=== PATIENT | female | born 1950 | race Caucasian/White ===

== ENCOUNTER 2017-07-28 07:39 | Day surgery (SDC) | payer MEDICARE, OTHER ==
[2017-07-28] MEDS: PHENYLEPHRINE 2.5% OPHTH SOL 2ML OD (07:00)
[2017-07-28] MEDS: CYCLOPENTOLATE 2% OPHTH SOLN 2ML BTL OD (07:00)
[2017-07-28] MEDS: LIDOCAINE 3.5 % 1ML OPHTH TOPICAL GEL OU (07:00)
[2017-07-28] MEDS: TROPICAMIDE 1% OPHTH SOLN 2ML OD (07:00)
[~2017-07-28 07:39] MED LIST: BSS with VANC/TOB/EPI for EYE CASES IR; OFLOXACIN 0.3 % (OCUFLOX) OPTH SOL 5ML OD
[2017-07-28] MEDS: PHENYLEPHRINE HCL 10 % OPHTH. SOL 5ML OD (08:33)
[2017-07-28] MEDS ORDERED: MIDAZOLAM INJ 2 MG/2 ML VIAL (J2250) As Ordered (08:38)
[2017-07-28] MEDS ORDERED: fentaNYL 100 MCG/2 ML INJECTION (J3010) As Ordered (08:38)
[2017-07-28] MEDS: POVIDONE-IODINE 5% OPHTH PREP SOL 30ML As Ordered (08:58)
[2017-07-28] MEDS: LIDOCAINE 1% SDV 5 ML VIAL As Ordered (09:09)
[2017-07-28] MEDS: TRIAMCINOLONE PRES FR 40 MG/ML 1ML(TRIESENCE)(OR EYE ONLY)(J3300 PER 1MG) As Ordered (09:09)
[2017-07-28] MEDS: MOXIFLOXACIN IN BSS 0.25MG/0.25ML INTRACAMERAL INJ (OR EYE ONLY)(J2280) As Ordered (09:09)
[2017-07-28] MEDS: HEALON DUET (HEALON 10MG/ML 0.55ML & HEALON ENDOCOAT 30MG/ML 0.85ML) As Ordered (09:09)
== END 2017-07-28 09:45 | disposition home or self-care (01) ==
LOC: M SDC 07:39
DX: H25.9 Unspecified age-related cataract (principal); K21.9 Gastro-esophageal reflux disease without esophagitis; J45.909 Unspecified asthma, uncomplicated; Z79.899 Other long term (current) drug therapy; F17.210 Nicotine dependence, cigarettes, uncomplicated
CPT/HCPCS: 66984

== ENCOUNTER → 2018-12-09 | Outpatient (CLI) | payer MEDICARE ==
[~2018-12-09] MED LIST changes: -BSS with VANC/TOB/EPI for EYE CASES IR; +ESOM0.1C PO; -OFLOXACIN 0.3 % (OCUFLOX) OPTH SOL 5ML OD
--- NOTE | 2018-12-10 09:59 | REP ---
RIGHT RIB SERIES, FOUR VIEWS: Four views of the right ribs are performed. No fracture or bone lesion is seen. IMPRESSION: No radiographic evidence of right rib fracture. Electronically Signed by Emeterio Hoff MD 12/12/2018 11:40 A
== END ==
LOC: M LRY 11:21
PROVIDERS: ATTEND Nurse Practitioner Adult Health
DX: S22.31XD Fracture of one rib, right side, subsequent encounter for fracture with routine healing (principal); W18.30XD Fall on same level, unspecified, subsequent encounter; Y92.009 Unspecified place in unspecified non-institutional (private) residence as the place of occurrence of the external cause

== ENCOUNTER → 2021-10-17 | Outpatient (CLI) | payer MEDICARE | LOC: M RAD 09:16 | PROVIDERS: ATTEND Nurse Practitioner Family | DX: Z87.891 Personal history of nicotine dependence (principal) ==

== ENCOUNTER 2023-11-18 13:36 | Inpatient (IN) | payer MEDICARE ==
[~2023-11-18] VITALS: Ht 167.6 cm; Wt 64.5 kg
[~2023-11-18 13:36] MED LIST changes: -ESOM0.1C PO; +ESOM20CA2 PO
[2023-11-18 15:49] VITALS: BP 133/63; TEMP 97.6; O2SAT 93
[2023-11-18] MEDS: POLYSPORIN TOPICAL OINTMENT 15GM TOP SCH (16:00)
[2023-11-18] MEDS: ACETAMINOPHEN 500 MG TAB PO SCH (16:00)
[2023-11-18] MEDS: ACETAMINOPHEN TAB 650MG DOSE (2X325MG) PO PRN (16:11)
[2023-11-18] MEDS ORDERED: ACETAMINOPHEN 325 MG TAB PO PRN (16:20)
[2023-11-18] MEDS: oxyCODONE 5MG TAB PO PRN (17:15)
[2023-11-18 20:00] VITALS: BP 131/63; TEMP 97.5; O2SAT 93
[2023-11-18] MEDS ORDERED: ACET1TAB55 PO (20:19)
[2023-11-18] MEDS ORDERED: OXYC-517 PO (20:19)
[2023-11-18] MEDS ORDERED: ESOM20CA25 PO (20:19)
[2023-11-18] MEDS ORDERED: LOVE1INJ SC (20:19)
[2023-11-18] MEDS ORDERED: CETI-24 PO (20:19)
[2023-11-18] MEDS ORDERED: SENN-186 PO (20:19)
[2023-11-18] MEDS ORDERED: BACI500O8 TOP (20:19)
[2023-11-18] MEDS ORDERED: METH-1164 PO (20:19)
[2023-11-18] MEDS ORDERED: METO1TAB87 PO (20:19)
[2023-11-18] MEDS ORDERED: HOME MED LIST COMPLETE! XX SCH (20:20)
[2023-11-18] MEDS: methocarbamoL 500 MG TAB PO SCH (21:02)
[2023-11-18] MEDS: SENNA 8.6 MG TAB (SENOKOT) PO SCH (21:04)
[2023-11-18] MEDS: ENOXAPARIN 40MG/0.4ML SYRINGE (J1650 PER 10MG) SC SCH (21:05)
[2023-11-19] MEDS: CETIRIZINE (ZyrTEC) 10 MG TAB PO SCH (09:00)
[2023-11-19] MEDS ORDERED: ENOXAPARIN 40MG/0.4ML SYRINGE (J1650 PER 10MG) As Ordered ONE (09:07)
[2023-11-19] MEDS ORDERED: ACETAMINOPHEN 500 MG TAB As Ordered ONE (09:07)
[2023-11-19] MEDS ORDERED: methocarbamoL 500 MG TAB As Ordered ONE (09:08)
[2023-11-19] MEDS ORDERED: oxyCODONE 5MG TAB As Ordered ONE (09:39)
[2023-11-19 12:00] VITALS: BP 120/55; TEMP 97.7; O2SAT 100
[2023-11-19] MEDS: PANTOPRAZOLE 40MG TAB (PROTONIX) PO SCH (13:00)
[2023-11-19] MEDS: METOPROLOL TART 25 MG TABLET PO SCH (15:48)
[2023-11-19 20:00] VITALS: BP 141/66; TEMP 97.7; O2SAT 97
[2023-11-20 04:00] VITALS: BP 132/62; TEMP 98; O2SAT 93
[2023-11-20 12:00] VITALS: BP 113/57; TEMP 98; O2SAT 100
[2023-11-20 20:00] VITALS: BP 143/65; TEMP 98.3; O2SAT 96
[2023-11-21 04:00] VITALS: BP 124/68; TEMP 98.8; O2SAT 94
[2023-11-21 08:00] VITALS: BP 121/83; TEMP 98.2; O2SAT 96
[2023-11-21 08:39] LABS: HEMATOCRIT 26.1 % (36.0-47.0); HEMOGLOBIN 8.3 g/dl (12.0-15.5); MEAN CORPUSCULAR HEMOGLOBIN 32.3 pg (27.0-33.0); MEAN CORPUSCULAR HGB CONC 31.8 g/dl (32.0-36.5); MEAN CORPUSCULAR VOLUME 101.6 fl (80.0-96.0); PLATELET COUNT, AUTOMATED 365 10^3/uL (150-450); RED BLOOD COUNT 2.57 10^6/uL (4.00-5.40); WHITE BLOOD COUNT 5.7 10^3/uL (4.0-10.0)
[2023-11-21 19:58] VITALS: BP 120/68; TEMP 98.1; O2SAT 92
[2023-11-22 03:33] VITALS: BP 140/58; TEMP 98.1; O2SAT 93
[2023-11-22 11:13] LABS: HEMATOCRIT 27.6 % (36.0-47.0); HEMOGLOBIN 8.7 g/dl (12.0-15.5); MEAN CORPUSCULAR HEMOGLOBIN 32.6 pg (27.0-33.0); MEAN CORPUSCULAR HGB CONC 31.5 g/dl (32.0-36.5); MEAN CORPUSCULAR VOLUME 103.4 fl (80.0-96.0); PLATELET COUNT, AUTOMATED 452 10^3/uL (150-450); RED BLOOD COUNT 2.67 10^6/uL (4.00-5.40)
[2023-11-22 11:25] LABS: ALBUMIN 2.7 G/DL (3.2-5.2); ALKALINE PHOSPHATASE 95 U/L (46-116); ALT/SGPT 90 U/L (7.0-40); AST/SGOT 88 U/L (<34); BILIRUBIN,TOTAL 0.7 MG/DL (0.3-1.2); BLOOD UREA NITROGEN 14 MG/DL (9-23); CALCIUM LEVEL 8.8 MG/DL (8.3-10.6); CARBON DIOXIDE LEVEL 30 MMOL/L (20-31); CHLORIDE LEVEL 104 MMOL/L (98-107); CREATININE FOR GFR 0.62 MG/DL (0.55-1.30); GLOMERULAR FILTRATION RATE > 60.0 (>39); GLUCOSE, FASTING 103 MG/DL (74-106); POTASSIUM SERUM 4.6 MMOL/L (3.5-5.1); SODIUM LEVEL 138 MMOL/L (136-145); TOTAL PROTEIN 5.6 G/DL (5.7-8.2)
[2023-11-22 12:00] VITALS: BP 102/51; TEMP 97.3; O2SAT 96
[2023-11-22 20:00] VITALS: BP 114/61; TEMP 97.2; O2SAT 95
[2023-11-23 04:00] VITALS: TEMP 97.3; O2SAT 94
[2023-11-23 07:08] LABS: PERCENT SATURATION 17.4 % (13.2-45.0)
[2023-11-23 07:10] LABS: ALBUMIN 2.6 G/DL (3.2-5.2); BILIRUBIN,DIRECT 0.2 MG/DL (<0.4); BILIRUBIN,TOTAL 0.6 MG/DL (0.3-1.2); FERRITIN 632.1 NG/ML (7.3-270.7); FOLATE 13.95 NG/ML (>5.4); TOTAL PROTEIN 5.1 G/DL (5.7-8.2)
[2023-11-23] MEDS: FERROUS SULFATE 325MG TAB PO SCH (11:02)
[2023-11-23 12:00] VITALS: BP 103/59; TEMP 97.5; O2SAT 95
[2023-11-23] MEDS: oxyCODONE 5MG TAB PO PRN (13:29)
[2023-11-23 20:00] VITALS: BP 111/53; TEMP 98.1; O2SAT 94
[2023-11-24 04:00] VITALS: BP 101/60; TEMP 97.8; O2SAT 97
[2023-11-24 06:28] LABS: HEMATOCRIT 25.2 % (36.0-47.0); MEAN CORPUSCULAR HEMOGLOBIN 32.8 pg (27.0-33.0); MEAN CORPUSCULAR HGB CONC 31.7 g/dl (32.0-36.5); MEAN CORPUSCULAR VOLUME 103.3 fl (80.0-96.0); PLATELET COUNT, AUTOMATED 444 10^3/uL (150-450); RED BLOOD COUNT 2.44 10^6/uL (4.00-5.40); WHITE BLOOD COUNT 5.6 10^3/uL (4.0-10.0)
[2023-11-24 09:00] VITALS: BP 101/60
[2023-11-24 12:00] VITALS: BP 112/62; TEMP 97.5; O2SAT 97
[2023-11-24] MEDS ORDERED: METH-1164 PO (12:35)
[2023-11-24] MEDS ORDERED: OXYC-517 PO (12:35)
[2023-11-24] MEDS ORDERED: LOVE1INJ SC (12:35)
[2023-11-24] MEDS ORDERED: NARC1SPR (12:35)
[2023-11-24] MEDS ORDERED: BACI28.3 TOP (12:35)
[2023-11-24] MEDS ORDERED: ACET-683 PO (12:35)
[2023-11-24] MEDS ORDERED: FERR1TAB8 PO (12:35)
[2023-11-24] MEDS ORDERED: SENO8.6T5 PO (12:35)
== END 2023-11-24 13:05 | disposition home health service (06) | DRG 561 ==
LOC: M PM&R 15:05
PROVIDERS: ADMIT Physical Medicine & Rehabilitation; ATTEND Student in an Organized Health Care Education/Training Program
DX: S82.201D Unspecified fracture of shaft of right tibia, subsequent encounter for closed fracture with routine healing (principal); S82.401D Unspecified fracture of shaft of right fibula, subsequent encounter for closed fracture with routine healing; S82.899D Other fracture of unspecified lower leg, subsequent encounter for closed fracture with routine healing; S62.302D Unspecified fracture of third metacarpal bone, right hand, subsequent encounter for fracture with routine healing; R21 Rash and other nonspecific skin eruption; G89.11 Acute pain due to trauma; I10 Essential (primary) hypertension; S22.43XD Multiple fractures of ribs, bilateral, subsequent encounter for fracture with routine healing; D53.9 Nutritional anemia, unspecified; R74.01 Elevation of levels of liver transaminase levels; R30.0 Dysuria; R92.8 Other abnormal and inconclusive findings on diagnostic imaging of breast; Z88.2 Allergy status to sulfonamides; Z88.0 Allergy status to penicillin; Z79.899 Other long term (current) drug therapy

== ENCOUNTER → 2024-01-25 | Outpatient (CLI) | payer MEDICARE ==
[~2024-01-25] MED LIST changes: +ACET-683 PO; +ACET1TAB55 PO; +ALBU8.5H; +ANAS1TAB2 PO; +BACI28.3 TOP; +BACI500O8 TOP; +CETI-24 PO; +ESOM20CA25 PO; +FERR1TAB8 PO; +LOVE1INJ SC; +METH-1164 PO; +METO1TAB87 PO; +NARC1SPR; +OXYC-517 PO; +SENN-186; +SENN-186 PO; +SENO8.6T5 PO
== END ==
LOC: M ONCR 10:21
PROVIDERS: ATTEND General Practice
DX: C50.412 Malignant neoplasm of upper-outer quadrant of left female breast (principal); Z79.899 Other long term (current) drug therapy; Z80.1 Family history of malignant neoplasm of trachea, bronchus and lung; Z80.49 Family history of malignant neoplasm of other genital organs; Z87.891 Personal history of nicotine dependence; Z88.0 Allergy status to penicillin; Z88.1 Allergy status to other antibiotic agents; Z88.2 Allergy status to sulfonamides

== ENCOUNTER → 2024-02-11 | Outpatient (CLI) | payer MEDICARE | LOC: M WHC 09:29 | PROVIDERS: ATTEND Internal Medicine Medical Oncology | DX: C50.412 Malignant neoplasm of upper-outer quadrant of left female breast (principal); Z78.0 Asymptomatic menopausal state; M85.89 Other specified disorders of bone density and structure, multiple sites ==

== ENCOUNTER → 2024-08-21 | Outpatient (CLI) | payer MEDICARE | LOC: M RAD 14:32 | PROVIDERS: ATTEND Registered Nurse | DX: Z12.2 Encounter for screening for malignant neoplasm of respiratory organs (principal); Z87.891 Personal history of nicotine dependence ==

== ENCOUNTER → 2024-09-14 | Outpatient (CLI) | payer MEDICARE | LOC: M RAD 10:00 | PROVIDERS: ATTEND Internal Medicine Medical Oncology | DX: M79.644 Pain in right finger(s) (principal) ==